=== PATIENT | male | born 2000 | race African-American/Black ===

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

== ENCOUNTER 2021-01-31 08:32 | Outpatient (CLI) | payer SELFPAY ==
[2021-01-31 09:22] LABS: INR-International Normal Ratio 2.5; Prothrombin Time 27.4 sec (12.0-14.7)
[2021-01-31 09:33] LABS: Follow-up Coag Comp? YES; Follow-up Result - Coag REPORT FAXED
== END 2021-01-31 08:33 | disposition home or self-care (01) ==
LOC: NAV LAB 08:32
PROVIDERS: ATTEND Internal Medicine Cardiovascular Disease
DX: I26.99 Other pulmonary embolism without acute cor pulmonale (principal); I82.409 Acute embolism and thrombosis of unspecified deep veins of unspecified lower extremity
CPT/HCPCS: 36415; 85610

== ENCOUNTER 2021-02-07 08:48 | Outpatient (CLI) | payer OTHER ==
[2021-02-07 10:21] LABS: INR-International Normal Ratio 3.6; Prothrombin Time 36.8 sec (12.0-14.7)
[2021-02-07 10:44] LABS: Follow-up Coag Comp? YES; Follow-up Result - Coag REPORT FAXED
== END 2021-02-07 08:49 | disposition home or self-care (01) ==
LOC: NAV LAB 08:48
PROVIDERS: ATTEND Internal Medicine Cardiovascular Disease
DX: I26.99 Other pulmonary embolism without acute cor pulmonale (principal); I82.409 Acute embolism and thrombosis of unspecified deep veins of unspecified lower extremity
CPT/HCPCS: 36415; 85610

== ENCOUNTER 2021-02-09 17:42 | Emergency (ER) | payer OTHER ==
[2021-02-09] MEDS ORDERED: Ondansetron PF 4 MG/2 ML Vial ONE (18:18)
[2021-02-09] MEDS ORDERED: Sodium Chloride 0.9% 1,000 ML ONE (18:19)
[2021-02-09 18:20] LABS: #Basophils 0.2 thou/uL (0.0-0.2); #Eosinphils 0.4 thou/uL (0.0-0.7); #Lymphocytes 1.4 thou/uL (1.20-3.40); #Monocytes 0.5 thou/uL (0.11-0.59); #Neutrophils 5.8 thou/uL (1.40-6.50); %Basophils 1.9 % (0.0-1.0); %Eosinophils 5.4 % (0.0-10.0); %Lymphocytes 16.5 % (28.0-48.0); %Monocytes 5.4 % (0.0-4.0); %Neutrophils 70.9 % (31.0-61.0); Hemoglobin 12.8 g/dL (14.0-18.0); Mean Corpuscular HGB CONC 30.4 g/dL (32.0-36.0); Mean Corpuscular Hemoglobin 25.3 pg (25.0-35.0); Platelet Count 339 thou/uL (130-400); RBC Distribution Width 15.5 % (11.5-14.5); Red Blood Cell (RBC) Count 5.06 mill/uL (4.00-5.20); White Blood Cell (WBC) Count 8.2 thou/uL (4.8-10.8)
[2021-02-09 18:29] LABS: Prothrombin Time 42.3 sec (12.0-14.7)
[2021-02-09 18:37] LABS: ALT (SGPT) 11 U/L (8-55); AST (SGOT) 16 U/L (10-45); Albumin 3.7 g/dL (3.5-5.0); Alkaline Phosphatase 63 U/L (50-130); Anion Gap 16 mmol/L (10-20); BUN (Urea Nitrogen) 8 mg/dL (8.4-21.0); Bilirubin, Total 0.7 mg/dL (0.2-1.2); Calc. Creatinine Clearance 0 mL/min (70-130); Calcium 9.3 mg/dL (7.8-10.44); Carbon Dioxide 25 mmol/L (22-29); Chloride 100 mmol/L (98-107); Globulin 4.5 g/dL (2.4-3.5); Glucose 87 mg/dL (70-105); Lipase 13 U/L (8-78); Potassium 3.6 mmol/L (3.5-5.1); Protein, Total 8.2 g/dL (6.0-8.3); Sodium 137 mmol/L (136-145)
[2021-02-09 18:46] LABS: INR-International Normal Ratio 4.3
[2021-02-09 19:08] LABS: Bilirubin Moderate (Negative); Blood, Urine Small (Negative); Clarity Slightly Cloudy (Clear); Glucose, Urine (Dipstick) Negative (Negative); Ketone, Urine > or equal to 80 mg/dL (Negative); Leukocyte Negative (Negative); Nitrite Negative (Negative); Protein, Urine (Dipstick) 100 mg/dL (Neg-Trace); Specific Gravity, Urine 1.025 (1.005-1.030); Urobilinogen 0.2 mg/dL (Less than 2); pH, Urine 5.5 (5.0-9.0)
[2021-02-09 19:11] LABS: Bacteria/HPF None Seen HPF (None Seen); Squamous Epithelial 0-3 HPF (0-3)
[2021-02-09 19:12] LABS: Sperm/HPF 2+ HPF (None Seen)
== END 2021-02-09 19:42 | disposition home or self-care (01) ==
LOC: NAV ERS 17:42
DX: R10.32 Left lower quadrant pain (principal); R11.2 Nausea with vomiting, unspecified; R79.1 Abnormal coagulation profile; R00.0 Tachycardia, unspecified; J45.909 Unspecified asthma, uncomplicated; Z86.711 Personal history of pulmonary embolism; Z79.01 Long term (current) use of anticoagulants
CPT/HCPCS: 80053; 81003; 81015; 83690; 85025; 85610; 87086; 94760; 96374; J2405; J7050

== ENCOUNTER 2021-08-19 13:03 | Emergency (ER) | payer OTHER, SELFPAY | END 2021-08-19 14:15 | disposition home or self-care (01) | LOC: NAV ERS 13:03 | DX: M79.661 Pain in right lower leg (principal) ==